=== PATIENT | female | born 1970 | race Caucasian/White ===

== ENCOUNTER → 2021-07-18 11:42 | Outpatient (CLI) | payer BC, SELFPAY ==
--- NOTE | ~2021-07-18 | XR_ITS ---
XR lumbar spine min 4V DATE: 07/18/2021 12:11 INDICATION: Right sciatica TECHNIQUE: AP, lateral, bilateral oblique views, coned lateral lumbosacral view COMPARISON: None FINDINGS: There is diffuse osteopenia. There is mild levoscoliosis of the lumbar spine. There is mild loss of height and anterior wedging of T11, likely chronic. There is mild degenerative spurring of the lower thoracic spine. No fracture or bone destruction. The lumbar pedicles are intact. There is minimal degenerative spurring of the lumbar spine. The lumbar and lumbosacral interspaces a re relatively well preserved. The sacroiliac joints are normal. IMPRESSION: Osteopenia Mild levoscoliosis Mild degenerative change Reviewed, dictated and finalized at location A. N FINISH OPERATOR TIG WELDER
== END ==
PROVIDERS: Visit Provider Family Medicine
DX: M54.31 Sciatica, right side (principal); M54.32 Sciatica, left side; M51.36 Other intervertebral disc degeneration, lumbar region
CPT/HCPCS: 72110

== ENCOUNTER → 2021-09-14 09:55 | Outpatient (CLI) | payer BC, SELFPAY ==
--- NOTE | ~2021-09-14 | MR_ITS ---
EXAMINATION: MR lumbar spine wo con DATE: 09/14/2021 10:36 INDICATION: 2 months of worsening bilateral lower limb pain and numbness TECHNIQUE: Magnetic resonance imaging (MRI) of the lumbar spine was performed without intravenous con trast. Sequences included sagittal T2-weighted FSE, sagittal T2-weighted FS FSE, sagittal T1-weighted FSE, and axial T2-weighted FSE. COMPARISON: None FINDINGS: Approximately 6 degrees lumbar levocurvature. Sagittal alignment is normal. 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 Lumbar vertebral body heights are normal. Severe disc height loss at T11 -T12 with degenerative endplate changes with mild underlying fibrovascular increased fluid signal. Ot herwise normal marrow signal. Disc desiccation and mild disc height loss at L2-L3, L3-L4 and L4-L5. T he conus medullaris terminates at L1-L2. There is normal signal in the caudal spinal cord. T2 hyperin tense cysts in the liver and right kidney. Paravertebral soft tissues are otherwise unremarkable. The following disc levels are specifically discussed: T11-T12: Disc is bulging. There is mild bilateral facet joint osteoarthritis. There is mild bilateral neural foraminal stenosis. There is mild central canal stenosis. T12-L1: The disc does not extend beyond the endplate margin. There is mild bilateral facet joint oste oarthritis. There is no neural foraminal stenosis. There is no central canal stenosis. L1-L2: Disc is minimally bulging. There is hypertrophy of the ligamentum flavum. There is mild left a nd moderate right facet joint osteoarthritis. There is mild bilateral neural foraminal stenosis. Ther e is no central canal stenosis. L2-L3: Disc is bulging. There is hypertrophy of the ligamentum flavum. There is moderate left and mo derate to severe right facet joint osteoarthritis. There is right and mild to moderate left neural fo raminal stenosis. There is moderate central canal stenosis. L3-L4: Disc is bulging. There is hypertrophy of the ligamentum flavum. There is moderate left and mod erate to severe right facet joint osteoarthritis. There is mild to moderate bilateral neural foramina l stenosis. There is severe central canal stenosis. L4-L5: Disc is bulging. There is hypertrophy of the ligamentum flavum. There is severe bilateral face t joint osteoarthritis. There is moderate left and mild to moderate right neural foraminal stenosis. There is severe central canal stenosis. L5-S1: Disc is mildly bulging. There is moderate left and moderate to severe right facet joint osteoa rthritis. There is mild bilateral neural foraminal stenosis. There is no central canal stenosis. IMPRESSION: 1. Mild to moderate lumbar spondylosis and congenitally small lower lumbar central canal resulting in severe central canal stenosis at L3-L4 and L4-L5 read 2. Severe degenerative disc disease at T11-T12. Reviewed, dictated and finalized at location A. IMPRESSION: 1. Mild to moderate lumbar spondylosis and congenitally small lower lumbar cent ral canal resulting in severe central canal stenosis at L3-L4 and L4-L5 read 2. Severe degenerative disc disease at T11-T12.
== END ==
PROVIDERS: PCP Family Medicine; Visit Provider Family Medicine
DX: M79.661 Pain in right lower leg (principal); M79.662 Pain in left lower leg; M47.896 Other spondylosis, lumbar region; M51.34 Other intervertebral disc degeneration, thoracic region
CPT/HCPCS: 72148

== ENCOUNTER → 2021-10-09 17:57 | Outpatient (CLI) | payer BC, SELFPAY ==
--- NOTE | ~2021-10-09 | DEXA_ITS ---
Bone Density Report Name: DARIN AYALA Age: 51 Sex: Female Ethnicity: White Date of : 1970 Indication: postmenopausal; screening for osteoporosis; prior fracture; Referring Provider: ERNA BAJWA Study: Bone densitometry was performed. Exam Date: October 09, 2021 Accession number: [id number] Bone Density: Region BMD T-score Z-score Classification AP Spine (L1-L4) 1.059 0.1 1.0 Normal Femoral Neck (Left) 0.799 -0.5 0.5 Normal Total Hip (Left) 0.946 0.0 0.6 Normal Femoral Neck (Right) 0.750 -0.9 0.0 Normal Total Hip (Right) 0.899 -0.4 0.2 Normal Total Hip Mean 0.923 -0.2 0.4 Normal World Health Organization criteria for BMD impression classify patients as: Normal (T-score at or above -1.0), Osteopenia (T-score between -1.0 and -2.5), or Osteoporosis (T-score at or below -2.5). 10-year Fracture Risk: FRAX not reported because: All T-scores for Spine Total, Hip Total, Femoral Neck at or above -1.0 Clinical Information Provided by Patient: Has had a low trauma fracture Smokes Has used the following medications: Vitamin D Patient maximum height was 64.0 Menopause Age: 49 No regular weight bearing exercise Does not regularly consume dairy products Drinks caffeinated beverages Onset of menses at age 10 Number of children 3 Impression: The patient has normal bone mass. The patient has risk factors, including: smoking, previous fracture. Discussion: BONE DENSITY IS ABOVE THE MINIMUM DESIRABLE LEVEL AT ALL SKELETAL SITES TESTED. This patient?s bone mineral density is above the minimum desirable level (T-score -1.0 or better) at all sites measured. The patient should follow a healthful lifestyle (good nutrition with adequate calcium and vitamin D, and appropriate weight-bearing exercise). Follow-Up: Consider repeating this study in 5 years or sooner if there is some new clinical indication. Reported by: STONE on 10/09/2021 6:19:00 PM. Reviewed, dictated and finalized at location A. [facility]
== END ==
PROVIDERS: PCP Family Medicine; Visit Provider Family Medicine
DX: M85.88 Other specified disorders of bone density and structure, other site (principal); Z78.0 Asymptomatic menopausal state
CPT/HCPCS: 77080

== ENCOUNTER → 2022-12-06 10:35 | Outpatient (CLI) | payer BC, SELFPAY ==
--- NOTE | ~2022-12-06 | XR_ITS ---
XR ankle RT 2V, XR tibia fibula RT 2V 12/06/2022 10:54 Indication: Right leg and ankle pain Procedure: 2 views right ankle and 2 views right tibia/fibula Comparison: No prior studies for comparison. Findings: There is an accessory ossicle distal to the fibula, normal variant. Normal mineralization. Ankle mortise intact. There is a small osteochondroma originating from the maximal tibial medially, c onsistent with benign osteochondroma. No focal soft tissue abnormality. No foreign bodies. Impression: 1: No acute bone or joint abnormality. Reviewed, dictated and finalized at location A. Impression: 1: No acute bone or joint abnormality. Impression: 1: No acute bone or joint abnormality.
== END ==
PROVIDERS: PCP Family Medicine; Visit Provider Clinical Nurse Specialist
DX: M25.571 Pain in right ankle and joints of right foot (principal); M79.604 Pain in right leg
CPT/HCPCS: 73590; 73600

== ENCOUNTER 2024-09-30 10:47 | Outpatient (CLI) | payer BC, SELFPAY ==
--- NOTE | ~2024-09-30 | US_ITS ---
EXAMINATION: US soft tissue abdomen DATE: 09/30/2024 11:13 INDICATION: Localized swelling, mass and lump at the right mid abdomen TECHNIQUE: Multiple grayscale and Doppler ultrasound images of the region of concern at the right mid abdomen were obtained. COMPARISON: None FINDINGS: Normal appearance to the abdominal wall and subcutaneous fat at the region of concern with no evident hernia or abnormal masses or fluid collections identified. Visualized portions of the underlying jorge er, gallbladder, abdominal aorta and inferior vena cava are normal. IMPRESSION: 1. No ventral hernia or other abnormal masses or fluid collections identified. Reviewed, dictated and finalized at location A.
== END 2024-09-30 10:48 | disposition home or self-care (01) ==
PROVIDERS: PCP Clinical Nurse Specialist; Visit Provider Clinical Nurse Specialist
DX: R22.9 Localized swelling, mass and lump, unspecified (principal)
CPT/HCPCS: 76705

== ENCOUNTER 2025-04-21 00:40 | Day surgery (SDC) | payer BC, SELFPAY ==
[2025-04-14 09:37] VITALS: BMI 21.4
--- OUTSIDE RECORDS SUMMARY | 2025-04-21 00:43 | XMS_ITS | Clinical Summary ---
Author Organization [facility] Address [address] [place] [address] Care Team Providers Care Feltmaker And Weigher Name Role Phone No, Physician Primary Care Provider [phone] Allergies Active Allergy Reactions Criticality Noted Date Comments Penicillins Hives Medium 06/05/2020 Medications HYDROcodone-irma taminophen (NORCO) 5-325 mg per tablet hydrocodone 5 mg-acetaminophen 325 mg tablet Active Active Problems Problem Noted Date Diagnosed Date Bilateral leg pain 06/05/2020 Lumbar radiculopathy 06/05/2020 Family History Medical History Relation Name Comments Colon cancer Father Heart disease Father Diabetes Maternal Grandmother Bipolar disorder Mother Heart disease Paternal Grandfather Relation Name Status Comments Father Alive Maternal Grandmother Mother Alive Paternal Grandfather Social History Tobacco Use Types Packs/Day Years Used Date Smoking Tobacco: Every Day Cigarettes Smokeless Tobacco: Never Personal Safety Answer Date Recorded Getting School Help Needed Not on file 09/10 Comments Unknown Sex and Gender Information Value Date Recorded Sex Assigned at Not on file Legal Sex Female 9:00 AM PSYCHOLOGY FELLOW Gender Identity Not on file Sexual Orientation Not on file Obstetrics History Last Filed Vital Signs Vital Sign Reading Time Taken Comments Blood Pressure 126/86 06/05/2020 10:13 AM PSYCHOLOGY FELLOW Pulse 66 06/05/2020 10:13 AM PSYCHOLOGY FELLOW Temperature - - Respiratory Rate - - Oxygen Saturation - - Inhaled Oxygen Concentration - - Weight 54.4 kg (120 lb) 06/05/2020 10:13 AM PSYCHOLOGY FELLOW Height 167.6 cm (5' 6) 06/05/2020 10:13 AM PSYCHOLOGY FELLOW Body Mass Index 19.37 06/05/2020 10:13 AM PSYCHOLOGY FELLOW Plan of Treatment Not on file Insurance [employer] [facility] Care Teams Feltmaker And Weigher Relationship Specialty Start Date End Date No, Physician PCP - General 05/30/20
[2025-04-21 11:56] VITALS: BP 155/89; PULSE 81; RESP 16; TEMP 36.1; O2SAT 99
[2025-04-21] MEDS: LACTATED RINGERS 1,000 ML 150 ML IV CONT (12:15)
--- NOTE | 2025-04-21 13:02 | WPDANESEPPF ---
Anes - Initial Pre Proc Eval Procedure: Operation Date: 04/21/25 13:00 Proposed Procedures p Screening Colonoscopy - Saeid Stein MD Date/Time: 04/21/25 13:02 Surgeon: Saeid Stein MD Pre Op Diagnosis: Encounter for screening for malignant neoplasm of Patient Data Age: 55 Gender: F Height: 1.6 m Weight: 50.3 kg Last Vital Signs Temp 96.9 F L 04/21/25 11:56 Pulse 81 04/21/25 11:56 Resp 16 04/21/25 11:56 BP 155/89 H 04/21/25 11:56 Pulse Ox 99 04/21/25 11:56 O2 Del Method Room Air 04/21/25 11:56 Allergies Allergy/AdvReac Type Severity Reaction Status Date / Time azithromycin Allergy Severe Nausea Verified 04/21/25 11:51 Penicillins Allergy Mild Hives Verified 04/21/25 11:51 Home Medications ?Medication ?Instructions ?Recorded ?Confirmed ?Type valsartan 80 mg tablet 80 mg PO DAILY 11/28/22 04/21/25 History albuterol sulfate 90 mcg/actuation 1 inh inhalation Q4H PRN shortness 08/21/23 04/21/25 Rx aerosol inhaler of breath or wheezing #8.5 grams cholecalciferol (vitamin D3) 125 125 mcg PO DAILY #90 caps 09/23/24 04/21/25 Rx mcg (5,000 unit) capsule aspirin 81 mg tablet 81 mg PO DAILY 01/30/25 04/21/25 History rosuvastatin 20 mg tablet 20 mg PO DAILY 01/30/25 04/21/25 History ibuprofen 200 mg tablet (Advil) 200 mg PO Q6H PRN pain 04/21/25 04/21/25 History Patient hx anesthesia problems: none Family hx anesthesia problems: none Results Review: All pre-operative results and documents have been reviewed as part of the pre-operative evaluation. [facility] Past Medical History Medical History Cardiac LV ejection fraction of 40-49% Noted on cardiology report from 2022. Osteochondroma Degenerative disc disease, lumbar Hyperlipidemia Coronary artery disease Tobacco abuse Essential hypertension Family History Family History Mother Hypertension Father Heart problem Grandparent Heart problem History of blood clots Diabetes mellitus Lung cancer Social History Social History Smoking packs per day: 1 Smoking cigarettes per day: 20.0 Years smoked: 40 Smoking pack-years: 40.00 Smoking status: Current every day smoker Tobacco type: cigarettes Alcohol intake: never Substance use: never Substance use type: does not use Lack of Transportation: No Lack of Food: Never True Current Housing: I Have Housing Concerned About Future Housing: No Difficulty Paying Gas/Electric Bills: No Difficulty Paying for Meds: No Currently Unemployed: No Education: High School Diploma/GED Difficulty w/ Childcare or Family Care: No Living arrangements: with family Anes - Eval Final PreProcedure Day of Procedure 04/21/25 13:02 Patient weight: normal Lungs: normal air movement Airway: Mallampati scale class II Neurological: alert and oriented Last oral intake: >/= 8 hours ASA classification: II Emergent: no Anesthetic plan: proceed Anesthesia type and monitoring: general GIVS and standard monitoring Results Review: All pre-operative results and documents have been reviewed as part of the pre-operative evaluation. HTN, hyperlipidemia, active smoker, 35 pack years. Pt can walk 1-2 fos, no cp or sob. Informed Consent: The patient's anesthetic plan and its attendant risks and benefits were discussed with the patient/family/POA. Questions were solicited and answers provided to the satisfaction of the patient/family/POA.
--- NOTE | 2025-04-21 13:16 | PM.IMHP ---
H&P: HPI History of Present Illness Date/Time: 04/21/25 13:16 Chief Complaint: Screening colonoscopy Narrative: This is the patient's first colonoscopy. There are no GI symptoms and there is no family history of colorectal cancer. Review of Systems Review of Systems: All systems reviewed & are unremarkable except as noted in HPI and below PMFSH Past Medical History Medical History Cardiac LV ejection fraction of 40-49% Noted on cardiology report from 2022. Osteochondroma Degenerative disc disease, lumbar Hyperlipidemia Coronary artery disease Tobacco abuse Essential hypertension Family History Family History Mother Hypertension Father Heart problem Grandparent Heart problem History of blood clots Diabetes mellitus Lung cancer Social History Social History Smoking packs per day: 1 Smoking cigarettes per day: 20.0 Years smoked: 40 Smoking pack-years: 40.00 Smoking status: Current every day smoker Tobacco type: cigarettes Alcohol intake: never Substance use: never Substance use type: does not use Lack of Transportation: No Lack of Food: Never True Current Housing: I Have Housing Concerned About Future Housing: No Difficulty Paying Gas/Electric Bills: No Difficulty Paying for Meds: No Currently Unemployed: No Education: High School Diploma/GED Difficulty w/ Childcare or Family Care: No Living arrangements: with family Meds Home Medications and Allergies Home Medications ?Medication ?Instructions ?Recorded ?Confirmed ?Type valsartan 80 mg tablet 80 mg PO DAILY 11/28/22 04/21/25 History albuterol sulfate 90 mcg/actuation 1 inh inhalation Q4H PRN shortness 08/21/23 04/21/25 Rx aerosol inhaler of breath or wheezing #8.5 grams cholecalciferol (vitamin D3) 125 125 mcg PO DAILY #90 caps 09/23/24 04/21/25 Rx mcg (5,000 unit) capsule aspirin 81 mg tablet 81 mg PO DAILY 01/30/25 04/21/25 History rosuvastatin 20 mg tablet 20 mg PO DAILY 01/30/25 04/21/25 History ibuprofen 200 mg tablet (Advil) 200 mg PO Q6H PRN pain 04/21/25 04/21/25 History Allergies Allergy/AdvReac Type Severity Reaction Status Date / Time azithromycin Allergy Severe Nausea Verified 04/21/25 11:51 Penicillins Allergy Mild Hives Verified 04/21/25 11:51 Vital Signs Vital Signs - 24 hr 04/21/25 11:56 Temperature 96.9 F L Pulse Rate 81 Respiratory Rate 16 Blood Pressure 155/89 H Pulse Oximetry 99 Oxygen Delivery Room Air Exam Const: General: cooperative and healthy appearing Resp: Effort & Inspection: normal respiratory effort and able to speak in complete sentences Auscultation: clear to auscultation bilaterally Cardio: Rate: regular rate Rhythm: regular rhythm GI: Inspection: normal to inspection GI Palp: No No hepatosplenomegaly present Auscultation: normal bowel sounds Rectal Exam: deferred Skin: General skin exam: normal color Psych: Appearance: grossly normal Mental Status: mental status grossly normal Assessment and Plan Assessment and plan (1) Screening for colon cancer: Code(s): Z12.11 - Encounter for screening for malignant neoplasm of colon Status: Acute Assessment and Plan: The patient is deemed a good candidate for the procedure. Consent signed. Will proceed.
[2025-04-21 13:54] VITALS: BP 127/87; PULSE 83; RESP 18; O2SAT 98
--- NOTE | 2025-04-21 13:54 | S_PTH ---
PATIENT: Maci Fong LOC: [facility]#:[id number] AGE/SX: 55/F ROOM: RE04/21/[address]: Saeid Stein MD : 1970 BED: DIS: 04/21/2025 SPEC #: [id number] RECD: 04/21/25 14:27 STATUS: CLARENCE REQ #: [id number] MARGO: 04/21/25 13:[address]: Saeid Stein DEPT: [facility] Surgical RECD BY: Alyx [place] ENTERED: 04/21/25 14:27 SP TYPE: Surgical OTHR DR: Deepa Marino, CASTING OPERATOR Tissues: A - Colon Polypectomy B - Colon Polypectomy Procedures: Hematoxylin and Eosin Stain Gross and Microscopic Level 4
[2025-04-21 14:04] VITALS: BP 134/89; PULSE 82; RESP 19; O2SAT 100
[2025-04-21 14:14] VITALS: BP 148/97; PULSE 75; RESP 16; O2SAT 100
== END 2025-04-21 14:30 | disposition home or self-care (01) ==
PROVIDERS: PCP Clinical Nurse Specialist; Referring Provider Clinical Nurse Specialist; Visit Provider Internal Medicine Gastroenterology
PROC: 0DJD8ZZ Inspection of Lower Intestinal Tract, Via Natural or Artificial Opening Endoscopic (ICD-10-PCS; CPT 45378; principal; 2025-04-21 13:00)
DX: Z12.11 Encounter for screening for malignant neoplasm of colon (principal); D12.2 Benign neoplasm of ascending colon; K63.5 Polyp of colon; K63.89 Other specified diseases of intestine; E78.5 Hyperlipidemia, unspecified; I10 Essential (primary) hypertension; I25.10 Atherosclerotic heart disease of native coronary artery without angina pectoris; M51.369 Other intervertebral disc degeneration, lumbar region without mention of lumbar back pain or lower extremity pain; F17.210 Nicotine dependence, cigarettes, uncomplicated; Z79.51 Long term (current) use of inhaled steroids; Z79.82 Long term (current) use of aspirin; Z79.1 Long term (current) use of non-steroidal anti-inflammatories (NSAID); Z80.1 Family history of malignant neoplasm of trachea, bronchus and lung; Z82.49 Family history of ischemic heart disease and other diseases of the circulatory system
CPT/HCPCS: 45385; 88305; J2003; J2704; J7120